=== PATIENT | male | born 1965 | race Hispanic/Latino ===

== ENCOUNTER 2022-12-11 07:33 | Observation (INO) | payer OTHER ==
[~2022-12-11] VITALS: Ht 152.4 cm; Wt 78.0 kg
[~2022-12-11 07:33] MED LIST: Z.0.ADIPEX-P37.5 MG PO; Z.0.SIMVASTATIN20 MG PO; [UNRECOGNIZED DRUG - REMARK]
[2022-12-11 07:58] LABS: BASOPHILS # (AUTO) 0.1 (0.0-0.1); BASOPHILS % 1.4 % (0.0-1.0); EOSINOPHILS # (AUTO) 0.4 (0.0-0.4); EOSINOPHILS % 5.6 % (0.0-6.0); HEMATOCRIT 45.5 % (38.2-49.6); HEMOGLOBIN 14.9 g/dL (14.0-18.0); LYMPHOCYTES # (AUTO) 2.6 (1.0-3.2); LYMPHOCYTES % 38.9 % (18.0-39.1); MEAN CORPUSCULAR HEMOGLOBIN 30.2 pg (28-32); MEAN CORPUSCULAR HGB CONC 32.7 g/dL (31-35); MEAN CORPUSCULAR VOLUME 92.1 fL (81-99); MONOCYTES # (AUTO) 0.7 (0.2-0.8); NEUTROPHILS # (AUTO) 2.9 (2.1-6.9); NEUTROPHILS % 43.6 % (38.7-80.0); PLATELET COUNT 194 x10e3/uL (140-360); RED BLOOD COUNT 4.94 x10e6/uL (4.3-5.7); RED CELL DISTRIBUTION WIDTH 12.5 % (11.7-14.4)
[2022-12-11 08:00] LABS: INR 0.84
[2022-12-11 08:01] LABS: PARTIAL THROMBOPLASTIN TIME 30.8 seconds (23.8-35.5)
[2022-12-11] MEDS ORDERED: IOPAMIDOL 370 MG/ML 100 ML INFUS..BTL INJ ONE (08:05)
[2022-12-11] MEDS ORDERED: SODIUM CHLORIDE 0.9% 100 ML ONE (08:05)
[2022-12-11 08:07] LABS: ALBUMIN 4.2 g/dL (3.5-5.0); ALBUMIN/GLOBULIN RATIO 1.6 (0.8-2.0); ANION GAP 15.6 mmol/L (8-16); CALCIUM 9.3 mg/dL (8.4-10.2); CREATININE, SERUM 0.82 mg/dL (0.72-1.25); MAGNESIUM 2.1 MG/DL (1.3-2.1); POTASSIUM 3.6 mmol/L (3.5-5.1)
[2022-12-11 08:13] LABS: CREATINE KINASE MB 1.3 ng/mL (0-5.0)
[2022-12-11] MEDS ORDERED: ASPIRIN 81 MG CHEW TAB PO ONE (09:30)
[2022-12-11 17:20] VITALS: BP 152/69
[2022-12-11 18:10] VITALS: BP 152/64
[2022-12-11] MEDS ORDERED: PRAVASTATIN SOD40 MG PO (18:23)
[2022-12-11] MEDS ORDERED: LISINOPRIL10 MG PO (18:23)
[2022-12-11] MEDS ORDERED: PREDNISONE20 MG PO (20:02)
[2022-12-11] MEDS ORDERED: PREDNISONE 20 MG TAB PO ONE (20:20)
[2022-12-11] MEDS ORDERED: PRAVASTATIN 20 MG TAB PO SCH (21:00)
[2022-12-12] MEDS ORDERED: LISINOPRIL 10 MG TAB PO SCH (09:00)
[2022-12-12] MEDS ORDERED: PREDNISONE 20 MG TAB PO SCH ×2 (09:00)
[2022-12-12] MEDS ORDERED: ASPIRIN 81 MG ENTERIC COATED PO SCH (09:00)
== END 2022-12-11 20:39 | disposition home or self-care (01) ==
LOC: ER 07:43 → ERHOLD 09:38 → MED/SURG2 16:52
PROVIDERS: ADMIT Internal Medicine; ATTEND Internal Medicine
DX: G51.0 Bell's palsy (principal); E78.5 Hyperlipidemia, unspecified; I10 Essential (primary) hypertension; I51.9 Heart disease, unspecified; Z20.822 Contact with and (suspected) exposure to COVID-19
CPT/HCPCS: 36415; 70496; 70498; 70551; 71045; 80053; 82550; 82553; 83735; 83880; 84484; 85025; 85610; 85730; 93005; 93306; 93880; 95819; 99285; G0378; J7050; J7512; Q9967; U0002

== ENCOUNTER 2024-06-16 10:29 | Emergency (ER) | payer OTHER ==
[~2024-06-16] VITALS: Ht 165.1 cm; Wt 66.7 kg
[~2024-06-16 10:29] MED LIST changes: +LISINOPRIL10 MG PO; +PRAVASTATIN SOD40 MG PO; +PREDNISONE20 MG PO
[2024-06-16 10:36] VITALS: TEMP 97.1
[2024-06-16 11:38] LABS: BASOPHILS # (AUTO) 0.1 (0.0-0.1); EOSINOPHILS # (AUTO) 0.2 (0.0-0.4); EOSINOPHILS % 3.5 % (0.0-6.0); HEMATOCRIT 43.4 % (38.2-49.6); HEMOGLOBIN 13.7 g/dL (14.0-18.0); LYMPHOCYTES # (AUTO) 1.5 (1.0-3.2); LYMPHOCYTES % 30.1 % (18.0-39.1); MEAN CORPUSCULAR HEMOGLOBIN 30.6 pg (28-32); MEAN CORPUSCULAR HGB CONC 31.6 g/dL (31-35); MEAN CORPUSCULAR VOLUME 96.9 fL (81-99); MONOCYTES # (AUTO) 0.4 (0.2-0.8); MONOCYTES % 7.4 % (4.4-11.3); NEUTROPHILS # (AUTO) 2.8 (2.1-6.9); NEUTROPHILS % 57.8 % (38.7-80.0); PLATELET COUNT 177 x10e3/uL (140-360); RED BLOOD COUNT 4.48 x10e6/uL (4.3-5.7); RED CELL DISTRIBUTION WIDTH 13.1 % (11.7-14.4); WHITE BLOOD COUNT 4.88 x10e3/uL (4.8-10.8)
[2024-06-16 11:45] LABS: INR 0.93; PROTHROMBIN TIME 12.9 seconds (11.9-14.5)
[2024-06-16 11:46] LABS: PARTIAL THROMBOPLASTIN TIME 31.5 seconds (23.8-35.5)
[2024-06-16] MEDS: METOCLOPRAMIDE HCL 10 MG/2ML VIAL IV ONE (11:49)
[2024-06-16] MEDS: DIPHENHYDRAMINE HCL INJ 50 MG/ML VIAL IV ONE (11:50)
[2024-06-16] MEDS: SODIUM CHLORIDE 0.9% 1000ML 1,000 ML IV SCH (11:50)
[2024-06-16] MEDS: KETOROLAC TROMETHAMINE 30 MG/ML VIAL IV STA (11:50)
[2024-06-16 11:56] LABS: ALANINE AMINOTRANSFERASE 17 IU/L (0-55); ALBUMIN 4.2 g/dL (3.5-5.0); ALBUMIN/GLOBULIN RATIO 1.7 (0.8-2.0); ALKALINE PHOSPHATASE 43 IU/L (40-150); BILIRUBIN,TOTAL 0.4 mg/dL (0.2-1.2); BLOOD UREA NITROGEN 13 mg/dL (7-26); BUN/CREATININE RATIO 14 (6-25); CALCIUM 9.2 mg/dL (8.4-10.2); CARBON DIOXIDE 24 mmol/L (22-29); CHLORIDE 106 mmol/L (98-107); CREATINE KINASE 100 IU/L (30-200); CREATININE, SERUM 0.95 mg/dL (0.72-1.25); EST GLOMERULAR FILTRATION RATE 93 ML/MIN (>=60); GLUCOSE 112 mg/dL (74-118); SODIUM 139 mmol/L (136-145); TOTAL PROTEIN 6.7 g/dL (6.5-8.1)
[2024-06-16 11:57] VITALS: PULSE 66; RESP 18
[2024-06-16 12:07] LABS: TROPONIN I < 0.001 ng/mL (0-0.300)
[2024-06-16] MEDS ORDERED: FIORICET 50-301 EACH PO (12:51)
[2024-06-16] MEDS ORDERED: ONDANSETRON ODT4 MG PO (12:51)
[2024-06-16 13:00] VITALS: BP 126/68; PULSE 68; RESP 17; TEMP 97.7; O2SAT 100
[2024-06-16] MEDS ORDERED: SODIUM CHLORIDE 0.9% 1000ML 0 ML ONE (13:35)
== END 2024-06-16 13:04 | disposition home or self-care (01) ==
LOC: ER 10:37
DX: R51.9 Headache, unspecified (principal); I10 Essential (primary) hypertension; E11.9 Type 2 diabetes mellitus without complications; E78.5 Hyperlipidemia, unspecified; E78.00 Pure hypercholesterolemia, unspecified
CPT/HCPCS: 36415; 70450; 71045; 80053; 82550; 84484; 85025; 85610; 85730; 99284; J1200; J1885; J2765; J7030